=== PATIENT | male | born 2005 | race Two or more races ===

== ENCOUNTER 2025-04-12 00:46 | Emergency (ER) | payer MEDICAID, SELFPAY ==
[2025-04-12 00:47] VITALS: BMI 26.4
[2025-04-12 00:58] VITALS: BP 127/81; PULSE 63; RESP 20; TEMP 36.8; O2SAT 95
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
--- NOTE | 2025-04-12 03:52 | PRELIM_ITS ---
CT scan of the head without intravenous contrast (axial sections with sagittal and coronal reformats) April 12, 2025 0311 hours Clinical History: Head injury. Comparison: No prior study is available for comparison. Findings: No evidence of intracranial hemorrhage, mass effect or midline shift. The ventricles and CSF spaces are unremarkable. The calvarium is intact. The mastoid air cells and the visualized paranasal sinuses are clear. There is left parietal scalp contusion. Impression: 1. No evidence of intracranial hemorrhage, midline shift or calvarial fracture. 2. Left parietal scalp contusion. 3. Other findings as described above. Suggest clinical correlation and follow up accordingly. Report Electronically Signed By: Myles Edwards 04/12/2025 3:51:36 AM [EST]
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
== END 2025-04-12 04:38 | disposition home or self-care (01) ==
PROVIDERS: Emergency Provider Family Medicine; PCP Family Medicine
DX: S01.01XA Laceration without foreign body of scalp, initial encounter (principal); W20.8XXA Other cause of strike by thrown, projected or falling object, initial encounter
CPT/HCPCS: 12002; 70450; 99283